=== PATIENT | male | born 1960 | race American Indian/Alaskan Native ===

== ENCOUNTER 2020-01-02 06:28 | Inpatient (IN) | payer OTHER ==
[2020-01-02] MEDS ORDERED: Lactated Ringers 1,000 ML IV SCH ×2 (06:30→13:00)
[2020-01-02] MEDS ORDERED: Propofol 200 MG/20 ML SDV ONE ×3 (07:13→12:04)
[2020-01-02] MEDS ORDERED: Midazolam 1 MG/ML 2 ML SDV ONE (07:13)
[2020-01-02] MEDS ORDERED: Lidocaine 2% 5 ML SDV ONE ×2 (07:13→07:29)
[2020-01-02] MEDS ORDERED: Dexamethasone 4 MG/ML 5 ML MDV ONE (07:13)
[2020-01-02] MEDS ORDERED: Ondansetron 4 MG/2 ML SDV ONE (07:13)
[2020-01-02] MEDS ORDERED: Rocuronium 100 MG/10 ML Syringe ONE ×2 (07:13→09:08)
[2020-01-02] MEDS ORDERED: HYDROmorphone 2 MG/ML Syringe ONE (07:14)
[2020-01-02] MEDS ORDERED: fentaNYL 250 MCG/5 ML SDV ONE (07:14)
[2020-01-02] MEDS ORDERED: Ketamine 500 mg/10 ML MDV ONE (07:14)
[2020-01-02] MEDS ORDERED: Gentamicin 40 MG/ML 2 ML Vial ONE (07:15)
[2020-01-02] MEDS ORDERED: Morphine PF 10 MG/10 ML SDV ONE (07:27)
[2020-01-02 07:28] LABS: BLOOD UREA NITROGEN,BUN 22 mg/dL (7.0-18.0); CHLORIDE,CL 104 mmol/L (98-107); GLUCOSE RANDOM 113 mg/dL (74-106); POTASSIUM,K 3.9 mmol/L (3.5-5.1); SODIUM,NA 141 mmol/L (136-148)
--- NOTE | 2020-01-02 07:36 | PCM.PREANE ---
Preanesthetic Assessment - Anesthesia/Transfusion/Family Hx Anesthesia History: Prior Anesthesia Without Reaction Family History of Anesthesia Reaction: No Transfusion History: No Prior Transfusion(s) - Review of Systems General: No Symptoms Pulmonary: No Symptoms Cardiovascular: No Symptoms Gastrointestinal: No Symptoms Neurological: Other (parkinsons) Other: Reports: None - Physical Assessment Height: 5 ft 10 in Weight: 94.347 kg ASA Class: 2 Mental Status: Alert & Oriented x3 Airway Class: Mallampati = 2 Dentition: Reports: Normal Dentition ROM/Head Extension: Full Lungs: Clear to Auscultation, Normal Respiratory Effort Cardiovascular: Regular Rate, Regular Rhythm - Lab Values: Laboratory Last Values WBC 5.83 K/uL (4.0-11.0) 01/02/20 06:59 RBC 4.74 M/uL (4.50-5.90) 01/02/20 06:59 Hgb 13.8 g/dL (13.0-17.0) 01/02/20 06:59 Hct 42.5 % (38.0-50.0) 01/02/20 06:59 MCV 89.7 fL (80.0-98.0) 01/02/20 06:59 MCH 29.1 pg (27.0-32.0) 01/02/20 06:59 MCHC 32.5 g/dL (31.0-37.0) 01/02/20 06:59 RDW Std Deviation 43.4 fl (28.0-62.0) 01/02/20 06:59 RDW Coeff of Rodolfo 13 % (11.0-15.0) 01/02/20 06:59 Plt Count 277 K/uL (150-400) 01/02/20 06:59 MPV 10.60 fL (7.40-12.00) 01/02/20 06:59 Nucleated RBC % 0.0 /100WBC 01/02/20 06:59 Nucleated RBCs # 0 K/uL 01/02/20 06:59 - Allergies Allergies/Adverse Reactions: Allergies Allergy/AdvReac Type Severity Reaction Status Date / Time No Known Allergies Allergy Verified 12/27/19 13:18 - Blood Blood Available: Yes - Anesthesia Plan Pre-Op Medication Ordered: None - Acknowledgements Anesthesia Type Planned: General Anesthesia, Spinal Pt an Appropriate Candidate for the Planned Anesthesia: Yes Alternatives and Risks of Anesthesia Discussed w Pt/Guardian: Yes Pt/Guardian Understands and Agrees with Anesthesia Plan: Yes Additional Comments: PMH: parkinsons, anxiety, gerd, hld, htn, asthma, depression PLAN: GET with intrathecal duramorph for post op paiin controll PreAnesthesia Questionnaire HEENT History: Reports: None Cardiovascular History: Reports: Hypertension Respiratory History: Reports: None Gastrointestinal History: Reports: None Genitourinary History: Reports: Prostate Disorder Musculoskeletal History: Reports: None Neurological History: Reports: Parkinson's Psychiatric History: Reports: None Endocrine/Metabolic History: Reports: None Hematologic History: Reports: None Immunologic History: Reports: None Oncologic (Cancer) History: Reports: Prostate Dermatologic History: Reports: None - Past Surgical History Head Surgeries/Procedures: Reports: None HEENT Surgical History: Reports: None Cardiovascular Surgical History: Reports: None Respiratory Surgical History: Reports: None GI Surgical History: Reports: Other (See Below) Other GI Surgeries/Procedures: hemorroidectomy Endocrine Surgical History: Reports: None Neurological Surgical History: Reports: None Musculoskeletal Surgical History: Reports: Arthroscopic Knee Oncologic Surgical History: Reports: None Dermatological Surgical History: Reports: None - SUBSTANCE USE Smoking Status *Q: Never Smoker Recreational Drug Use History: No - HOME MEDS Home Medications: Home Meds Carbidopa/Levodopa [Carbidopa-Levo ER 50-200] 1 tab PO QID 12/27/19 [History] Selegiline HCl 5 mg PO BID 12/27/19 [History] atenoloL [Atenolol] 25 mg PO DAILY 12/27/19 [History] Trihexyphenidyl [Artane] 2 mg PO BID 12/28/19 [History] - CURRENT (IN HOUSE) MEDS Current Meds: Current Medications Lactated Ringer's (Ringers, Lactated) 1,000 mls @ 100 mls/hr IV ASDIRECTED MANUELA Last Admin: 01/02/20 07:33 Dose: 100 mls/hr Discontinued Medications Dexamethasone (Dexamethasone) Confirm Administered Dose 20 mg .ROUTE .STK-MED ONE Stop: 01/02/20 07:14 Fentanyl (Sublimaze) Confirm Administered Dose 250 mcg .ROUTE .STK-MED ONE Stop: 01/02/20 07:15 Gentamicin Sulfate (Gentamicin) Confirm Administered Dose 80 mg .ROUTE .STK-MED ONE Stop: 01/02/20 07:16 Hydromorphone HCl (Dilaudid) Confirm Administered Dose 2 mg .ROUTE .ST-MED ONE Stop: 01/02/20 07:15 Ketamine HCl (Ketalar) Confirm Administered Dose 500 mg .ROUTE .STK-MED ONE Stop: 01/02/20 07:15 Lidocaine (Xylocaine-Mpf 2%) Confirm Administered Dose 5 ml .ROUTE .STK-MED ONE Stop: 01/02/20 07:14 Lidocaine (Xylocaine-Mpf 2%) Confirm Administered Dose 5 ml .ROUTE .ST-MED ONE Stop: 01/02/20 07:30 Midazolam HCl (Versed 1 Mg/Ml) Confirm Administered Dose 4 mg .ROUTE .ST-MED ONE Stop: 01/02/20 07:14 Morphine Sulfate (Duramorph Pf) Confirm Administered Dose 10 mg .ROUTE .STK-MED ONE Stop: 01/02/20 07:28 Ondansetron HCl (Zofran) Confirm Administered Dose 4 mg .ROUTE .ST-MED ONE Stop: 01/02/20 07:14 Propofol (Diprivan 20 Ml) Confirm Administered Dose 600 mg .ROUTE .STK-MED ONE Stop: 01/02/20 07:14 Rocuronium [place] (Zemuron) Confirm Administered Dose 100 mg .ROUTE .STK-MED ONE Stop: 01/02/20 07:14
[2020-01-02] MEDS ORDERED: ceFAZolin/Dextrose,Iso-Osmotic 2 GM/50 ML Duplex Bag IV ONE (08:23)
[2020-01-02] MEDS ORDERED: Mineral Oil/Petrolatum Ophth Oint 3.5 GM Tube ONE (09:09)
[2020-01-02] MEDS ORDERED: Nalbuphine 10 MG/1 ML Vial IVPUSH PRN (09:15)
[2020-01-02] MEDS ORDERED: Naloxone 0.4 MG/ML Syringe IVPUSH PRN (09:15)
[2020-01-02] MEDS ORDERED: diphenhydrAMINE 50 MG/ML SDV IVPUSH PRN (09:15)
[2020-01-02] MEDS ORDERED: Sugammadex Sodium 200 MG/2 ML VIAL ONE (09:34)
[2020-01-02] MEDS ORDERED: Furosemide 40 MG/4 ML VIAL ONE (12:22)
[2020-01-02] MEDS ORDERED: Enoxaparin 40 MG/0.4 ML Syringe SUBCUT SCH (13:00)
[2020-01-02] MEDS ORDERED: ceFAZolin 1 GM in Premix Bag 1 BAG IV SCH (13:15)
--- NOTE | 2020-01-02 13:24 | PCM.POSTAN ---
POST ANESTHESIA ASSESSMENT - MENTAL STATUS Mental Status: Alert, Oriented - VITAL SIGNS Vital Signs: Last Vital Signs Temp 37.2 C 01/02/20 12:39 Pulse 75 01/02/20 13:19 Resp 13 01/02/20 13:19 BP 107/61 01/02/20 13:19 Pulse Ox 94 L 01/02/20 13:19 - RESPIRATORY Respiratory Status: Respiratory Rate WNL, Airway Patent, O2 Saturation Stable - CARDIOVASCULAR CV Status: Pulse Rate WNL, Blood Pressure Stable - GASTROINTESTINAL GI Status: No Symptoms - POST OP HYDRATION Hydration Status: Adequate & Stable
--- NOTE | 2020-01-02 13:48 | OR ---
SURGEON: Terri Yeager M.D. 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 POSTOPERATIVE DIAGNOSES: Adenocarcinoma of the prostate plus right inguinal hernia. OPERATIONS: Preperitoneal right inguinal hernia repair and radical retropubic prostatectomy. DESCRIPTION OF PROCEDURE: The patient was given general anesthesia. He was placed in the supine position on the table, was flexed approximately 15 degrees. He was then prepped and draped in sterile drapes. A catheter was placed in the bladder. A lower midline incision was made, carried through the fascia. Retropubic space was exposed. The obturator lymph nodes were removed on both sides, appeared uninvolved. Puboprostatic ligaments were taken down. The endopelvic fascia was incised. Further dissection was carried out. The apex of the prostate was from the membranous urethra. Dissection was continued behind the prostate that from anterior wall of the rectum. The attachments to the prostate on both sides were taken down using 0 silk ties as needed. Seminal vesicles were dissected, included with the specimen. Vas deferens transected. The proximal end was occluded with hemoclip. Proximal dissection was then carried out the prostate from the neck of the bladder. The neck of the bladder was made smaller with a running suture of 3-0 chromic. Ureteral orifices were safely intact in the distance. Anastomosis between the bladder neck and the membranous urethra was completed using two chromic interrupted sutures at the 6, 8, 10, 4, 2, and 12 o'clock positions. The bladder was irrigated. Two [place] drains were left in, one on each side. The wound was irrigated. The preperitoneal repair of the hernia was accomplished. The defect was identified. The sac was partly excised, the hernia sac that is. The defect was closed using 0 silk sutures by approximating the conjoint tendon to the iliopubic tract. The wound was then closed with #2 nylon for the fascia, a running suture of 3-0 chromic for the subcutaneous tissue and elinor for the skin. ESTIMATED BLOOD LOSS: 1000 mL. OPERATING TIME: 4 hours. The patient tolerated the procedure well. PRIMARY SURGEON: Terri Yeager MD BODY DESIGNER: Dr. Sanchez. [place] / ONI /[id number]
[2020-01-02] MEDS: Carbidopa/Levodopa 50-200 MG Tab.ER PO SCH ×3 (14:08→23:08)
[2020-01-02] MEDS: Bacitracin Oint 1 GM U/D Packet TOP SCH ×2 (14:09→22:04)
[2020-01-02] MEDS: ceFAZolin 1 GM in Premix Bag 1 BAG IV SCH ×2 (15:52→23:53)
[2020-01-02] MEDS: Acetaminophen/oxyCODONE 325-5 MG Tab PO PRN ×2 (16:06→17:58)
[2020-01-02 16:53] LABS: BLOOD UREA NITROGEN,BUN 18 mg/dL (7.0-18.0); CARBON DIOXIDE,CO2 26.4 mmol/L (21.0-32.0); CHLORIDE,CL 106 mmol/L (98-107); GLUCOSE RANDOM 140 mg/dL (74-106); POTASSIUM,K 4.2 mmol/L (3.5-5.1); SODIUM,NA 142 mmol/L (136-148)
[2020-01-02] MEDS: Lactated Ringers 1,000 ML IV SCH (18:02)
[2020-01-03] MEDS: Acetaminophen/oxyCODONE 325-5 MG Tab PO PRN ×4 (00:01→20:32)
[2020-01-03] MEDS: Lactated Ringers 1,000 ML IV SCH ×4 (01:04→21:22)
[2020-01-03] MEDS: Bacitracin Oint 1 GM U/D Packet TOP SCH ×3 (05:56→22:06)
[2020-01-03] MEDS: Carbidopa/Levodopa 50-200 MG Tab.ER PO SCH ×5 (06:23→23:00)
[2020-01-03 07:24] LABS: BLOOD UREA NITROGEN,BUN 15 mg/dL (7.0-18.0); CARBON DIOXIDE,CO2 29.4 mmol/L (21.0-32.0); CHLORIDE,CL 103 mmol/L (98-107); GLUCOSE RANDOM 111 mg/dL (74-106); POTASSIUM,K 3.8 mmol/L (3.5-5.1); SODIUM,NA 138 mmol/L (136-148)
[2020-01-03] MEDS: ceFAZolin 1 GM in Premix Bag 1 BAG IV SCH ×2 (07:57→17:01)
--- NOTE | 2020-01-03 08:08 | PCM48HPAN ---
Post Anesthesia Note - EVALUATION WITHIN 48HRS OF ANESTHETIC Vital Signs in Normal Range: Yes Patient Participated in Evaluation: Yes Respiratory Function Stable: Yes Airway Patent: Yes Cardiovascular Function Stable: Yes Hydration Status Stable: Yes Pain Control Satisfactory: Yes Nausea and Vomiting Control Satisfactory: Yes Mental Status Recovered: Yes Vital Signs: Last Vital Signs Temp 36.8 C 01/03/20 04:00 Pulse 64 01/03/20 06:00 Resp 12 01/03/20 06:00 BP 110/59 L 01/03/20 06:00 Pulse Ox 94 L 01/03/20 06:00
[2020-01-03] MEDS: Atenolol 25 MG Tab PO SCH (10:47)
[2020-01-03] MEDS: Enoxaparin 40 MG/0.4 ML Syringe SUBCUT SCH (16:59)
[2020-01-03] MEDS ORDERED: Morphine 2 MG/ML Syringe IVPUSH ONE (21:46)
[2020-01-04] MEDS: ceFAZolin 1 GM in Premix Bag 1 BAG IV SCH ×3 (00:06→16:08)
[2020-01-04] MEDS: Acetaminophen/oxyCODONE 325-5 MG Tab PO PRN ×2 (02:03→12:36)
[2020-01-04] MEDS: Lactated Ringers 1,000 ML IV SCH ×3 (04:32→18:59)
[2020-01-04] MEDS: Bacitracin Oint 1 GM U/D Packet TOP SCH ×3 (06:44→23:09)
[2020-01-04] MEDS: Carbidopa/Levodopa 50-200 MG Tab.ER PO SCH ×5 (06:45→23:06)
[2020-01-04] MEDS: fentaNYL 100 MCG/2 ML SDV IVPUSH PRN ×3 (08:23→23:05)
[2020-01-04] MEDS: Atenolol 25 MG Tab PO SCH (08:29)
--- NOTE | 2020-01-04 13:38 | PN ---
The patient is doing well. He is stable. His urine output is good. His lungs are clear. His abdomen is soft. The wound looks okay. His hemoglobin has gone from 13.3 preop to 11.4 same day and then 10.1 on 01/03/2020. His electrolytes are normal. His renal function is normal as well. His pain is under control. [place] / ONI /[id number]
--- NOTE | 2020-01-04 13:45 | PN ---
The patient continues to do well. His vital signs are stable. His urine output is good, the urine is clear. There is minimal drainage from the [place] drains. The incision looks good. Lungs are clear. PLAN: Expected to go home tomorrow. [place] / ONI /[id number]
[2020-01-04] MEDS: Enoxaparin 40 MG/0.4 ML Syringe SUBCUT SCH (15:14)
[2020-01-05] MEDS: fentaNYL 100 MCG/2 ML SDV IVPUSH PRN (01:11)
[2020-01-05] MEDS: ceFAZolin 1 GM in Premix Bag 1 BAG IV SCH ×3 (01:12→16:15)
[2020-01-05] MEDS: Lactated Ringers 1,000 ML IV SCH ×2 (01:28→08:28)
[2020-01-05] MEDS: Acetaminophen/oxyCODONE 325-5 MG Tab PO PRN ×5 (03:40→23:59)
[2020-01-05] MEDS: Bacitracin Oint 1 GM U/D Packet TOP SCH ×3 (06:25→21:33)
[2020-01-05] MEDS: Carbidopa/Levodopa 50-200 MG Tab.ER PO SCH ×5 (06:25→23:55)
[2020-01-05] MEDS: Atenolol 25 MG Tab PO SCH (08:25)
[2020-01-05] MEDS: Enoxaparin 40 MG/0.4 ML Syringe SUBCUT SCH (16:15)
[2020-01-06] MEDS: ceFAZolin 1 GM in Premix Bag 1 BAG IV SCH ×2 (00:03→09:27)
[2020-01-06] MEDS: Acetaminophen/oxyCODONE 325-5 MG Tab PO PRN ×2 (05:34→10:42)
[2020-01-06] MEDS: Bacitracin Oint 1 GM U/D Packet TOP SCH (06:13)
[2020-01-06] MEDS: Carbidopa/Levodopa 50-200 MG Tab.ER PO SCH ×2 (06:13→10:43)
[2020-01-06] MEDS: Atenolol 25 MG Tab PO SCH (09:28)
--- NOTE | 2020-01-07 10:25 | DISCH ---
DATE OF DISCHARGE: 01/06/2020 PRIMARY CARE PHYSICIAN: Sunny Paulino [facility] A 59-year-old, he had radical retropubic prostatectomy on the 3rd of this month, 4 days ago. His postoperative course was uneventful. He did well. His urine remained clear. His vital signs remained stable. His hemoglobin at the beginning was 13. At the time of discharge, his hemoglobin is 10. At the time of discharge, he is doing well, and his pain was controlled by Percocet. It is primarily incisional pain. The incision looks good and clean. The [place] drains are advanced. He is fitted with a leg bag. He is sent home on Keflex 500 three times a day for the next 4 days. I will see him this coming Tuesday to take the [place] drains out and take the elinor out. The catheter will stay another week. Pathology is still pending. [place] / ONI /[id number]
== END 2020-01-06 12:00 | disposition home or self-care (01) | DRG 708 ==
LOC: MW.SDS 06:28 → EDSTATUS 08:00 → MW.ICU 13:50 → MW.SDS 14:00 → MW.ICU 14:00 → MW.MS 01-03 15:22
PROVIDERS: ADMIT Urology; ATTEND Urology
PROC: 0VT00ZZ Resection of Prostate, Open Approach (ICD-10-PCS; principal; 2020-01-02)
PROC: 07BC0ZZ Excision of Pelvis Lymphatic, Open Approach (ICD-10-PCS; 2020-01-02)
PROC: 0YQ60ZZ Repair Left Inguinal Region, Open Approach (ICD-10-PCS; 2020-01-02)
DX: C61 Malignant neoplasm of prostate (principal); K40.90 Unilateral inguinal hernia, without obstruction or gangrene, not specified as recurrent
CPT/HCPCS: 36415; 80048; 85025; 85027; 86850; 86900; 86901; 86920; 86921; 86922; A9270-GY; J0690; J1100; J1170; J1580; J1650; J1940; J2001; J2250; J2270; J2405; J2704; J3010; J3490; J7120